=== PATIENT | male | born 1930 ===

== ENCOUNTER → 2019-08-15 | Outpatient (CLI) | payer MEDICARE ==
[~2019-08-15] MED LIST: ACET-93 PO; ASCO10006 PO; CETI10TA20 PO; CITA10TA12 PO; GUAI100L13 PO; HALO0.5T PO; HYOS-6 PO; IBUP-2185 PO; LORA0.5T PO; MORP5VIA IV; NF-ROP5T PO; ONDN4T PO; OXB5TCR PO; PSYL3.4P5 PO; SULF1TAB34 PO
== END | disposition home or self-care (01) ==
LOC: PREOP 11:53 → EDUNIT# 08-16 10:30
PROVIDERS: ATTEND Specialist
DX: Z01.818 Encounter for other preprocedural examination (principal)